=== PATIENT | male | born 2000 | race Caucasian/White ===

== ENCOUNTER 2024-06-01 19:34 | Observation (INO) | payer OTHER, SELFPAY ==
[2024-06-01 19:34] VITALS: BP 150/84; PULSE 88; RESP 17; TEMP 36.5; O2SAT 99; BMI 26.2
--- NOTE | 2024-06-01 19:50 | CT_ITS ---
EXAM: CT ABDOMEN AND PELVIS WITH INTRAVENOUS CONTRAST CLINICAL INDICATION: Right lower quadrant abdominal pain TECHNIQUE: Helically acquired images were obtained of the abdomen and pelvis with intravenous contrast. This CT exam was performed using one or more of the following dose reduction techniques: automated exposure control, adjustment of the mA and/or kV according to patient size, and/or use of iterative reconstruction technique. CONTRAST: IV 100mL Isovue-370 COMPARISON: No relevant prior studies available. FINDINGS: LOWER THORAX: Unremarkable. Lung bases are clear. No cardiomegaly. No significant pericardial effusion. ABDOMEN: LIVER: Unremarkable. Homogeneous. No focal mass. GALLBLADDER AND BILE DUCTS: Unremarkable. No calcified gallstones. No gallbladder distention or wall edema. No intra- or extrahepatic biliary ductal dilation. PANCREAS: Unremarkable. No focal cystic or solid mass. SPLEEN: Unremarkable. Normal size without focal cystic or solid mass. ADRENALS: Unremarkable. No nodules. KIDNEYS AND URETERS: Unremarkable. Normal renal size and position. No hydronephrosis. STOMACH AND BOWEL: Unremarkable. No stomach or bowel distention. No focal inflammatory change. PELVIS: APPENDIX: The appendix is enlarged in size measuring upwards of 1 cm. There is mild surrounding inflammation compatible with early acute appendicitis. There is no abscess or perforation. BLADDER: Unremarkable. REPRODUCTIVE: Unremarkable as visualized. No mass. ABDOMEN and PELVIS: INTRAPERITONEAL SPACE: Unremarkable. No ascites or other fluid collection. No free air. BONES/JOINTS: Unremarkable. No suspicious lytic or blastic abnormality. SOFT TISSUES: Unremarkable. No discrete abdominal or pelvic wall hernia. VASCULATURE: Unremarkable. Abdominal aorta is non-dilated. LYMPH NODES: Unremarkable. No enlarged lymph nodes. CT/Abdomen/Pelvis W IV Cont ONLY IMPRESSION: Enlarged appendix with mild surrounding inflammation compatible with early acute appendicitis. N.B. : The above Results were Read Back by Franky Dixon MD to Stephen Mayfield MD, and understanding confirmed on 06/01/2024 20:50:36 (ET). Electronically Signed: Franky Dixon MD at 20:51 EDT ,
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
[2024-06-01 20:06] LABS: Absolute Lymphocyte Count 1.52 X10^3/uL (0.83-4.51); Absolute Neutrophil Count 16.3 X10^3/uL (2.0-7.7); Basophil# 0.06 X10^3/uL; Basophil% 0.3 % (0-1); Eosinophil# 0.15 X10^3/uL; Eosinophils% 0.8 % (0-5); Hematocrit 45.2 % (40-54); Hemoglobin 15.7 g/dL (13.0-16.5); Lymphocyte # 1.52 X10^3/ul (0.83-4.51); Lymphocyte % 7.7 % (19-41); Mean Corp Hgb Conc 34.7 g/dL (32-36); Mean Corpuscular Hgb 29.2 pg (27.0-32.0); Mean Corpuscular Volume 84.2 fL (80-94); Monocyte% 8.1 % (0-10); NRBC Flagged by Analyzer 0 % (0-5); Neutrophil # 16.33 X10^3/uL (2.7-7.7); Neutrophil % 82.6 % (47-70); POSITIVE DIFFERENTIAL YES; Platelet Count 260 K/mm3 (150-450); RBC Distribution Width CV 11.9 % (11.6-14.6); RBC Distribution Width SD 35.8 fl (35.1-43.9); Red Blood Count 5.37 M/mm3 (4.6-6.2); White Blood Count 19.8 K/mm3 (4.4-11.0)
[2024-06-01 20:19] LABS: Bacteria 0 SEEN /hpf (None Seen); Mucous, Urine 0 SEEN /hpf (<or=2+); Red Blood Cells-Urine 0 SEEN /hpf (0-5); Squamous Epithelial Cells - UA 0 SEEN /hpf (0-5); White Blood Cells 0 SEEN /hpf (0-5)
[2024-06-01 20:20] LABS: Differential Indicated SCAN CRITERIA MET
[2024-06-01 20:22] LABS: Color, Urine Yellow (Yellow); Glucose, Dipstick Normal (Normal); Ketone-Dipstick Negative (Negative); Leukocyte Esterase-Dipstick Negative /ul (Negative); Nitrite-Dipstick Negative (Negative); Occult Blood-Urine Negative /ul (Negative); Protein-Dipstick Negative (Negative); Urine Bilirubin Dipstick Negative (Negative); Urine Clarity Clear (Clear); Urine Urobilinogen Normal (Normal)
[2024-06-01 20:25] LABS: ALB/GLOB Ratio 1.2 RATIO (0.9-2.4); AST(SGOT) 16 U/L (15-37); Alanine Aminotransfer ALT/SGPT 24 U/L (16-61); Albumin, Serum 4.1 g/dL (3.2-5.0); Alkaline Phosphatase 85 U/L (45-117); Anion Gap 7 (5-15); BUN 30 mg/dL (7-18); BUN/Creat Ratio 34.4 RATIO (10-20); Calcium,Total 9.2 mg/dL (8.5-10.1); Chloride 104 mmol/L (98-107); Creatinine, Serum 0.87 mg/dL (0.70-1.30); EST Glomerular Filtration Rate 114 mL/min (>60); Est Glom Filt Rate - Afr Amer 138 mL/min (>60); Estimated Creatinine Clearance 144.94 ml/min; Globulin 3.3 g/dL (2.2-4.2); Glucose 95 mg/dL (74-106); Potassium 3.6 mmol/L (3.5-5.1); Protein, Total 7.4 g/dL (6.4-8.2); Sodium Level 136 mmol/L (136-145)
[2024-06-01] MEDS: 0.9% Normal Saline (1000mL) 1,000 ML 999 ML IV (20:26)
[2024-06-01 20:27] VITALS: BP 155/82; PULSE 87; RESP 16; O2SAT 99
[2024-06-01 20:42] LABS: Differential Comment SCANNED
[2024-06-01] MEDS: Ondansetron 4 MG/2 ML Vial IV (21:49)
[2024-06-01] MEDS: Morphine 4 MG/ML Syringe IV (21:49)
[2024-06-01] MEDS: Clindamycin 600 MG/50 ML BAG 100 MG IV (21:54)
[2024-06-01 21:55] VITALS: BP 109/92; PULSE 95; RESP 18; TEMP 37.5; O2SAT 96
[2024-06-01 21:58] VITALS: BP 109/92; PULSE 89; RESP 16; O2SAT 96
[2024-06-01] MEDS: 0.9% Normal Saline (1000mL) 1,000 ML 125 ML IV (21:59)
[2024-06-01 22:56] VITALS: BMI 26.2
[2024-06-01 23:08] VITALS: BP 125/73; PULSE 84; RESP 14; TEMP 36.9; O2SAT 99
[2024-06-01 23:34] VITALS: BP 125/73; PULSE 82; RESP 14; TEMP 36.9; O2SAT 99
[2024-06-02] VITALS (15 sets, daily range): BP systolic 114–130; BP diastolic 47–72; PULSE 58–87; RESP 12–19; TEMP 36.7–37.1; O2SAT 94–100; BMI 26.2
[2024-06-02] MEDS: 0.9% Normal Saline (1000mL) 1,000 ML 125 ML IV (05:00)
[2024-06-02] MEDS: Ciprofloxacin 400 MG/200 ML BAG 200 MG IV (05:01)
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
--- NOTE | 2024-06-02 06:01 | NURSING ---
MS317: Levon Em left the unit to the OR for surgery with Dr. Chaudhary at 0545.
[2024-06-02] MEDS: metroNIDAZOLE 500 MG/100 ML BAG 100 MG IV (06:07)
--- NOTE | 2024-06-02 06:20 | APP_PTH ---
PATIENT: ABBEY CHEN LOC: MS3 U#:[id number] AGE/SX: 23/M ROOM: ME317 RE06/01/[address]: Dr. Earl Chaudhary MD : 2000 BED: 1 DIS: 06/02/2024 SPEC #: [id number] RECD: 06/02/24 10:44 STATUS: KATARINA OTT #: [id number] BROWN: 06/02/24 06:[address]: Earl Chaudhary DEPT: SURGICAL PATHOLOGY RECD BY: Chaitanya Malik ENTERED: 06/02/24 11:34 SP TYPE: APPENDIX OTHR DR: Dr. Anirudh Fleming MD Tissues: Appendix, NOS Procedures: Surgery Specimen Level III HEADER OPERATION: Laparoscopic, appendectomy PRE-OP DIAGNOSIS: Acute appendicitis TISSUE SUBMITTED: Appendix MICROSCOPIC DIAGNOSIS Appendix, appendectomy: Acute appendicitis and periappendicitis. NATE/ 06/03/2024 MICROSCOPIC DESCRIPTION Slides are reviewed. GROSS DESCRIPTION Received in fixative is one container labeled with the patient's name and designated appendix. The specimen consists of lateral L shaped appendix measuring 7.5 cm in length and up to 1.0 cm in diameter. The attached periappendiceal adipose tissue measures up to 1.5 cm in width. The serosa is congested. No obvious perforation is identified. The lumen contains a small amount of hemorrhagic fluid. No fecalith is identified. Counter Maker sections are submitted in one cassette. / SJ: 06/02/2024 TC: TC:2 CPT: 08314
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
[2024-06-02] MEDS: Bupiv/Epi 0.25% 30 ML Vial (06:39)
--- NOTE | 2024-06-02 07:10 | PCM.POST.ANE ---
Anesthesia: Postop Eval I Current Vital Signs Temperature: 98.3 F Pulse Rate: 83 Blood Pressure: 125/58 Respiratory Rate: 19 Pulse Ox: 96 Assessment Airway patent: Yes Spontaneous unlabored respirations: Yes nausea: No Vomiting: No Anesthesia Complication: No Fluid Hydration Crystalloid volume administer (ml): 500 Total IV fluid infused: 500 Progress Note Anesthesia document: Postop Eval 1 completed: Yes
--- NOTE | 2024-06-02 07:12 | POSTOPAN2_ITS ---
Anesthesia Postop Eval I Sum Postop Eval Completion status Anesthesia document: Postop Eval 1 completed: Yes Anesthesia Postop Eval I Summary Anesthesia Postop Eval I Summary: Anesthesia Postop Eval I: Assessment Summary Airway patent Yes 06/02/24 07:10 BUSINESS PROJECT [email or web address] Spontaneous unlabored Yes 06/02/24 07:10 BUSINESS PROJECT [email or web address] respirations Mental status nausea No 06/02/24 07:10 BUSINESS PROJECT [email or web address] Vomiting No 06/02/24 07:10 BUSINESS PROJECT [email or web address] Anesthesia Postop Eval I: Fluid Summary Crystalloid volume administer 500 06/02/24 07:10 BUSINESS PROJECT [email or web address].JCOTE (ml) Colloids volume administered ( ml) Blood Product volume administered (ml) Total IV fluid infused 500 06/02/24 07:10 BUSINESS PROJECT [email or web address] Anesthesia Postop Eval I: Summary Notes Anesthesia Complication No 06/02/24 07:10 BUSINESS PROJECT [email or web address] Anesthesia Complication Comment: Post-operative progress note Anesthesia: Postop Eval II Evaluation Mental status: Asleep Pain Level: 0 nausea: No Vomiting: No
--- NOTE | 2024-06-02 07:12 | PCM.POSTANE2 ---
Anesthesia Postop Eval I Sum Postop Eval Completion status Anesthesia document: Postop Eval 1 completed: Yes Anesthesia Postop Eval I Summary Anesthesia Postop Eval I Summary: Anesthesia Postop Eval I: Assessment Summary Airway patent Yes 06/02/24 07:10 DIRECTOR OF EXHIBIT DEVELOPMENT.[email or web address] Spontaneous unlabored Yes 06/02/24 07:10 DIRECTOR OF EXHIBIT DEVELOPMENT.JCOTE respirations Mental status nausea No 06/02/24 07:10 DIRECTOR OF EXHIBIT DEVELOPMENT.JCOTE Vomiting No 06/02/24 07:10 DIRECTOR OF EXHIBIT DEVELOPMENT.JCOTE Anesthesia Postop Eval I: Fluid Summary Crystalloid volume administer 500 06/02/24 07:10 DIRECTOR OF EXHIBIT DEVELOPMENT.JCOTE (ml) Colloids volume administered ( ml) Blood Product volume administered (ml) Total IV fluid infused 500 06/02/24 07:10 DIRECTOR OF EXHIBIT DEVELOPMENT.JCOTE Anesthesia Postop Eval I: Summary Notes Anesthesia Complication No 06/02/24 07:10 DIRECTOR OF EXHIBIT DEVELOPMENT.JCOTE Anesthesia Complication Comment: Post-operative progress note Anesthesia: Postop Eval II Evaluation Mental status: Asleep Pain Level: 0 nausea: No Vomiting: No
--- NOTE | 2024-06-02 07:24 | PCM.OPRPT ---
Report of Operation Date of Procedure: 06/02/24 Pre-Operative Diagnosis: Acute appendicitis Post-Operative Diagnosis: Acute appendicitis Surgery/Procedure Performed:: Laparoscopic appendectomy Type of Anesthesia: General/Regional Specimen's removed: Appendix Estimated Blood Loss (mL): 5 Description of Procedure: The patient was brought into the operating room and general anesthesia was induced. The left arm was tucked and the abdomen was prepped and draped in usual sterile fashion. A small midline incision was made superior to the umbilicus and deepened to the level of the fascia. The fascia was elevated and incised. The peritoneum was also elevated and incised. A finger sweep was performed and a balloon trocar was placed into the abdomen and inflated. The abdomen was insufflated to 15 mmHg and the camera was inserted and the abdomen was inspected for any injuries upon entering the abdomen. There were none. The patient was placed in Trendelenburg position and a 5 mm ports placed in the left lower quadrant and suprapubic areas under direct visualization. Next using atraumatic bowel graspers the appendix was identified. The appendix was grasped and elevated and Enseal was used to take down the mesoappendix. A stapler was used to come across the base of the appendix. The appendix was then placed in Endo Catch bag and removed through the umbilical incision. The staple line was inspected and there was mild bleeding. Titanium clip was used to stop the bleeding. The 2 5 mm ports are removed under direct visualization. The balloon trocar was deflated and removed and all the air was removed from the abdomen. The umbilical incision fascia was closed with an 0 Vicryl [id number] suture. The incisions were then irrigated with saline and dried. Local anesthetic was injected into the incision sites. The skin incisions were then closed with interrupted 4-0 Monocryl suture and Steri-Strips. Bandages were applied and the patient was awoken and taken to PACU in stable condition. Patient tolerated the procedure well. Admit VTE Documentation VTE Mechan Device Prophylaxis: SCD's
[2024-06-02] MEDS: Lactated Ringers 1,000 ML 15 ML IV (07:32)
--- NOTE | 2024-06-02 11:16 | DCINST_ITS ---
Discharge Instructions Diet Discharge Diet: Light diet - advance as tolerated Activity Discharge Activity: May Not Drive (3-4 days or while taking narcotic pain medications) Lifting Restrictions: 15 pounds for 2 weeks; no strenuous exercises for 4 weeks Dressing / Incision Call your doctor if your incision/area has: Continuous Slow Oozing, Sudden Increased Bleeding, Increased Pain/ Swelling, Increased Redness, Foul Smelling Discharge and Swelling at the incision site Call your doctor if you observe: Fever of 101 or Higher Suture Line Care: Avoid Pulling/Pushing and Avoid Pinching/Bending Remove Dressing in: 2 days Cleanse incision/area with: Soap & Water Follow Up Care Please Follow Up With: aErl Chaudhary MD When: Please contact our office to schedule a follow-up appointment for 2 weeks from surgery at [phone], option #2. Test Results: Test results from this visit will be discussed in further detail at your follow- up appointment, if applicable. Discharge Plan Admission Admit Date/Time: 06/01/24 21:35 Primary Reason for Your Visit: acute appendicitis Attending Provider: Earl Chaudhary Primary Care Provider: Anirudh Fleming Instructions Additional Instructions / Restrictions: Appendectomy Diet ? Start light with soups and soft bland foods. You may advance diet as tolerated. Activity ? You may drive in 3-4 days but not while taking narcotic pain medication. ? I encourage walking. You may go up steps, one at a time. ? Do not swim or use hot tubs for 2 weeks. ? For comfort, you may use warm compresses or ice as needed for 15-20 minutes at a time. Lifting ? You may lift up to 15 pounds for 2 weeks. No strenuous exercise for 4 weeks from surgery Dressings/Incision ? You may shower OVER your plastic dressings ? Do NOT tub bathe for 1 week ? Leave plastic dressings on for 2 days. ? When plastic dressings are removed, you will find steri-strips. It is okay to continue showering with them in place, pat them dry. ? You may remove steri-strips after 1 week. We recommend getting them soaking wet for easier removal. Medications ? Anesthesia used during surgery and pain medications may cause constipation. I recommend initiating on the day of surgery a fiber supplement like, Metamucil, Citrucel, FiberCon, Benefiber, or a generic form of these medications. 1 heaping tablespoon in water daily. You may continue to utilize any bowel regimen or oral laxatives that you routinely take. ? As long as you are not intolerant to Tylenol, acetaminophen, ibuprofen, Motrin, Advil, Aleve, or similar medications, I would recommend transitioning to these [id number] medicines as soon as possible instead of continued use of narcotic pain medication. Follow up ? You should call [facility] soon after surgery, at [phone] option 1 to make a follow up appointment for 14 days after your surgery. Discharge Orders/Prescriptions Prescriptions: New acetaminophen 325 mg Tablet 650 mg PO Q4H PRN PRN (Reason: Pain 1-10 Or Fever) Qty: 0 0RF Referrals / Follow Up: Earl Chaudhary MD [Med Staff - Active Staff] - 06/16/24 Anirudh Fleming MD [Primary Care Provider] - Disposition Disposition (needs filled in before D/C Order can be placed): Home, Self Care
[2024-06-02 14:53] LABS: Pathologist Review Reviewed
--- NOTE | 2024-06-02 15:01 | CHAPLAIN ---
Type of Pastoral Visit _x__ Initial Visit ___ Follow-up Visit ___ On-call Visit ___ General Patient Visit ___ Spiritual Assessment ___ Family Conference ___ Bereavement ___ Rapid Response ___ Code Blue ___ Other (describe below) Pastoral Care Referral From _x__ Patient ___ Family ___ Nurse ___ Physician ___ Applied Exercise Physiologist ___ Owner Operator ___ Other (describe below) Sacrament/Intervention _x__ Active listening ___ Anointing ___ Jew ___ Bereavement ___ Communion ___ Laura exploration ___ ___ Life review ___ Prayer ___ Reconciliation ___ Sacrament of Sick _x__ Supportive presence ___ Wedding ___ Other (describe below) Pastoral Comments patient and spouse in the room; pt speaks of two surgeries in two weeks; pt states that he is thankful for a place like this when you need it; pt has no other concerns at this time;
== END 2024-06-02 16:46 | disposition home or self-care (01) ==
LOC: ED 21:34 → MS3 21:51
PROVIDERS: Admitting Provider Surgery; Emergency Provider Emergency Medicine; PCP Family Medicine; Visit Provider Surgery
PROC: 0DTJ4ZZ Resection of Appendix, Percutaneous Endoscopic Approach (ICD-10-PCS; CPT 44970; principal; 2024-06-02 06:00)
DX: K35.80 Unspecified acute appendicitis (principal); F17.210 Nicotine dependence, cigarettes, uncomplicated; S62.502D Fracture of unspecified phalanx of left thumb, subsequent encounter for fracture with routine healing; X58.XXXD Exposure to other specified factors, subsequent encounter
CPT/HCPCS: 44970; 00840; 74177; 80053; 81001; 85025; 88304; 96361; 96365; 96375; 99221; 99283; 99406; J7030; J7050; J7120; Q9967; A4216; C1760; G0378; J0744; J2405

== ENCOUNTER 2024-07-07 16:30 | Outpatient (RCR) | payer SELFPAY, OTHER ==
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
--- NOTE | 2024-12-02 11:35 | HP.OTDCSUM ---
Discharge Summary D/C Summary: It has been my pleasure to treat ABBEY CHEN under orders from Dr. Mani Maxwell MD, for the diagnosis of left thumb closed displaced Jonah's fx for a total of 3 visit(s). Please see the following information for a summary of their discharge status. Objective Objective/Function: left wrist ROM 35/40 left MP 20* left IP 37* Goals Patient Goals: Regain Mobility, Regain Strength, Use Hand/Wrist/Arm Normally Again and Be More Independent in ADLS Goal:100% adherence to protocol: Yes Goal:ROM equal to unaffected hand: Yes Goal:Auto Body Builder Apprentice/Pinch strength at least 75% of unaffected hand: Yes Goal:No pain with affected hand use: Yes Goal:Full use of affected hand in daily activities including work: Yes Goal:Decrease scar hypersensitivity: Yes Other Goal: pt will demo understanding of edema control qasim. by end of 1st visit D/C Information Discharge Comments: pt was seen 3 OT session and at this time 12/02/24 no further apts. scheduled. pt d./c due to time lapse in services d/c sentence: If there are questions or concerns regarding this patient's occupational therapy, please fell free to call me at [phone]. Thank you for the referral of this patient. Sincerely, Geraldine Yates, OTR/L, CHT
== END 2024-07-07 19:00 | disposition home or self-care (01) ==
LOC: OT 16:30
PROVIDERS: PCP Family Medicine; Referring Provider Orthopaedic Surgery; Visit Provider Orthopaedic Surgery
DX: S62.22 Rolando's fracture (principal)
CPT/HCPCS: 97110; 97140; 97166; 97530